=== PATIENT | male | born 1935 | race Caucasian/White ===

== ENCOUNTER 2017-06-26 09:15 | Emergency (ER) | payer MEDICARE, BC ==
[2017-06-26] MEDS ORDERED: Ondansetron 4 MG/2 ML SDV IVPUSH ONE (10:28)
[2017-06-26] MEDS ORDERED: Sodium Chloride 0.9% 1,000 ML IV SCH (10:30)
--- NOTE | 2017-06-26 13:06 | US ---
INDICATION: Quick look ultrasound suggested dilated gallbladder with sludge by Dr. Monte. RIGHT UPPER QUADRANT/GALLBLADDER ULTRASOUND: Multiple ultrasonic images were obtained 06/26/2017 and revealed evidence of a pericardial effusion. The IVC was phasic. The liver appeared normal, as visualized. The common bile duct was normal in caliber at 4.6 mm. The aorta was not evaluated. The gallbladder measured 6.2 x 2.4 x 3.7 cm, with no calculi, sludge, wall thickening, pericholecystic fluid, or positive ultrasonic Lamb sign. The right kidney measured 11.1 x 4.9 x 4.9 cm with suggestion of some thinning of the renal cortex. A 2.5 x 2.4-cm cyst is noted splaying the right renal parenchyma near the midpole area. It is mostly exophytic. The right kidney was otherwise unremarkable. The pancreas appeared normal. IMPRESSION: 1. No evidence of gallbladder sludge or positive ultrasonic Lamb sign. No calculi are seen in the gallbladder. 2. Small right renal cyst. 3. Pericardial effusion. Report was called to Dr. Monte at 1200 hours, 06/26/2017. [facility]
--- NOTE | 2017-06-26 13:24 | CR ---
INDICATION: Cardiomegaly, hypocontractile heart. CHEST: PA and lateral views of the chest were obtained 06/26/2017 and compared with 05/05/2016 and 07/08/2011. There are now noted healing rib fractures on the right, posterolaterally at the 7th and 8th right ribs, with a slightly nodular appearance of the periosteal new bone formation. A definite active infiltrate or effusion was not identified. The heart is within normal limits in size and shape. There is some calcification in the arch of the aorta, however. Bony structures appear to be grossly intact, with a minimal dextroconcave scoliosis suggested at the lower middle thoracic spine. Slightly heavy markings are again noted at the right costophrenic angle, likely fibrotic in nature with no definite active infiltrate or effusion identified. Prominent AP diameter and somewhat flattened diaphragm leaves remain compatible with COPD. IMPRESSION: 1. No acute process. 2. Probable COPD. 3. ASD aorta. 4. Mild pulmonary fibrosis. 5. Healing rib fractures on the right x2. MTDD
[2017-06-26 14:27] VITALS: BP 138/82
--- NOTE | 2017-06-30 15:23 | ER ---
DATE SEEN: 06/26/2017 TIME SEEN: The patient was seen at 0936 hours. CHIEF COMPLAINT: Nausea and loose stools x2, vomiting/retching with chills since last night. HISTORY OF PRESENT ILLNESS: This 81-year-old retired gentleman comes in with his son, noted to have diarrhea, feelings of hot and cold (autonomic symptoms) status post previous cardiac stent, fracture clavicle, right shoulder injury with right rib fractures, scapular fracture 05/17/2016. PAST MEDICAL HISTORY: Acute pericarditis in 1995, chest pain in 1994, tubular adenoma of colon with resection, polypectomy, right cataract surgery in 1986 review, ureteral calculus 1974, and tonsillectomy in 1939, angiography in 2010 with stents placed, 90% stenosis, LAD and its branch, type 2 diabetes. Previous documented bradycardia. Early dementia. He was transferred from [facility] on 05/17/2016 for his bradycardia. No pacemaker was in place. PAST SURGICAL HISTORY: Tonsillectomy, coronary artery stent, shoulder fractures, comminuted fracture of scapula with conservative therapy, displaced rib fractures. ALLERGIES: None. CURRENT MEDICATIONS: 1. Simvastatin 20 mg daily. 2. Losartan 50 mg daily. 3. Glimepiride 4 mg daily. 4. Carvedilol 6.25 mg b.i.d. 5. Aspirin 81 mg daily. REVIEW OF SYSTEMS: The patient has decreased hearing. HEENT: Has glasses. No history of cataracts or glaucoma. No difficulty swallowing. He has his own teeth. No neck problems. CARDIORESPIRATORY: Denies chest pain, shortness of breath, or irregular heartbeat. He felt slightly dizzy today after he vomited. GI: History of vomiting as noted above. No previous history of ulcers, GERD, diarrhea, constipation, blood in the stool, black tarry stool. : He does have nocturia and frequency. Denies dysuria. Denies kidney stones. MUSCULOSKELETAL: Decreased strength. NEURO: Denies head injury, headaches, compromise vision, but his son notes he has increased mental fall away. PHYSICAL EXAMINATION: VITAL SIGNS: Blood pressure 160/70, heart rate 43, sometimes goes down to 35, respirations 16, oxygen saturation 99%, temperature is 35.8. GENERAL: Alert man, who is markedly hard of hearing. He is mildly overweight. He is well tanned. Pleasant personality, he has good eye contact. Hearing is decreased. TMs, normal appearance except for mild scarring. Pharynx without abnormality. Gag is in place. Uvula midline. Tongue midline. NECK: No bruits. There is some murmur that is transmitted from the heart. LUNGS: Clear to auscultation without rales, rhonchi, or wheezes. HEART: S1, S2. There is no irregular rate or rhythm. DIAGNOSTIC DATA: EKG, sinus bradycardia atrial premature complex. Abnormal inferior Q-waves, minimal significance. No evidence of myocardial infarction. He has bradycardia that goes down to as low as 35 beats per minute. He has sinus arrhythmia. Question AV conduction defect. LABORATORY FINDINGS: White count 6900, PMNs 85, lymphocytes 11, monos 3, platelets 209,000, hemoglobin 13.7. D-dimer is 538 (not abnormal for his age). Ten times his age would be suggested close to normal and he is 81 years, so over 800 would still be considered normal. Per the D-dimer study: Patients could even double or triple that should be normal as an outlier. GFR is 53, not abnormal for his age. Unchanged since 2016. Sodium 137, potassium 4.4, chloride 106, bicarb 26, BUN 21, creatinine 1.3. Calcium 9.0. Bilirubin normal at 1.0. AST and ALT normal at 20 and 19 respectively. Troponin less than 0.01. Quick look ultrasound suggests he might have sludge in the gallbladder. The heart has suggested cardiomegaly with 25-40% hypercontractility. The vena cava is dilated. There is minimal contractility of the aorta. Suggestion of pericardial fluid was confirmed with a designated ultrasound of the gallbladder. The gallbladder was negative. The gallbladder is dilated. ASSESSMENT AND PLAN: 1. Given the bradycardia, it went down to 35, the pericardial effusion and the patient's nausea and vomiting. The patient was treated for dehydration. Status discussed with Cardiology team. The patient to go to [place] for further evaluation and evaluate for potential need for pacemaker. 2. Other history of cardiac stent. Probable 25-50% EF. 3. Transient enterocolitis and vomiting and diarrhea secondary to either staphylococcal food poisoning or enterococcal food poisoning. 4. Hypertension. 5. Hot and cold sweats probably secondary to autonomic symptoms related to his gastroenteritis. /[id number] 50 LS/MODL
== END 2017-06-26 14:26 ==
LOC: FB.ED 09:15
DX: K52.9 Noninfective gastroenteritis and colitis, unspecified (principal); E86.0 Dehydration; R00.1 Bradycardia, unspecified; I10 Essential (primary) hypertension; Z98.49 Cataract extraction status, unspecified eye; Z95.5 Presence of coronary angioplasty implant and graft; Z98.890 Other specified postprocedural states; Z79.82 Long term (current) use of aspirin; Z79.899 Other long term (current) drug therapy; E11.9 Type 2 diabetes mellitus without complications
CPT/HCPCS: 36415; 71020; 76705; 80053; 83605; 83690; 83880; 84443; 84484; 85025; 85379; 93005; 96361; 96374; 99285; J2405; J7040

== ENCOUNTER 2017-10-11 03:51 | Observation (INO) | payer MEDICARE, BC ==
[2017-10-11] MEDS ORDERED: Lactated Ringers 1,000 ML IV ONE (04:03)
--- NOTE | 2017-10-11 04:06 | EDM.PDOC ---
ED HPI GENERAL MEDICAL PROBLEM - General Stated Complaint: HEAD LAC Time Seen by Provider: 10/11/17 03:51 Source of Information: Reports: Patient, Police History Limitations: Reports: Altered Mental Status - History of Present Illness INITIAL COMMENTS - FREE TEXT/NARRATIVE: 82 y.o.w.m h/o Dementia, HTN, came to the ed by the police after he was found in his truck, not responding with blood at the back if his head. BS was 199 on arrival to the ED, his temp was 92 axillary. Pt was lethargic asking occ "what happened", has NIDDM and had episodes of nausea, did not vomit in the ED, however. BP 127/94 pulse 48 temp 33,4 F As per son, who was called by the police, stated, the pt was seen not long ago in the hospital for HTN and low HR. While the pt was examined in the ed, his mental status was improving. Onset Date: 10/11/17 Onset Time: 03:00 Duration: Minutes: Location: Reports: Head - Related Data Allergies Allergy/AdvReac Type Severity Reaction Status Date / Time No Known Allergies Allergy Verified 10/11/17 07:37 Home Meds: Home Meds Glimepiride 4 mg PO DAILY 05/03/16 [History] Losartan [Cozaar] 50 mg PO DAILY 05/03/16 [History] Aspirin 81 mg PO DAILY 05/05/16 [History] Simvastatin [Zocor] 20 mg PO BEDTIME 05/05/16 [History] Donepezil HCl 10 mg PO BEDTIME 10/11/17 [History] Past Medical History HEENT History: Reports: Cataract, Impaired Vision Cardiovascular History: Reports: Stents Respiratory History: Reports: None Musculoskeletal History: Reports: Fracture Other Musculoskeletal History: scapula and rib fractures 04/2016 Endocrine/Metabolic History: Reports: Diabetes, Type II - Infectious Disease History Infectious Disease History: Reports: Chicken Pox Other Infectious Disease History: HAS HAD SHOT FOR SHINGLES - Past Surgical History Cardiovascular Surgical History: Reports: Coronary Artery Stent Musculoskeletal Surgical History: Reports: None Social & Family History - Family History Family Medical History: Noncontributory - Tobacco Use Smoking Status *Q: Never Smoker Years of Tobacco use: 15 Packs/Tins Daily: 1 Used Tobacco, but Quit: Yes Month Tobacco Last Used: NOV Second Hand Smoke Exposure: No - Caffeine Use Caffeine Use: Reports: Coffee - Alcohol Use Days Per Week of Alcohol Use: 2 Number of Drinks Per Day: 1 Total Drinks Per Week: 2 - Recreational Drug Use Recreational Drug Use: No ED ROS GENERAL - Review of Systems Review Of Systems: Unable To Obtain ED EXAM, GENERAL - Physical Exam Exam: See Below Exam Limited By: Altered Mental Status General Appearance: WD/WN, Lethargic (postictal) Eye Exam: Bilateral Eye: Normal Inspection Ears: Normal External Exam Ear Exam: Bilateral Ear: Auricle Normal Nose: Normal Inspection, Normal Mucosa, No Blood Throat/Mouth: Other (bite on right lat tongue ) Head: Other (SQ hematoma r post travon 5X2 cm) Neck: Normal Inspection, Supple, Non-Tender, Full Range of Motion Respiratory/Chest: No Respiratory Distress, Lungs Clear (poor insp effort), Normal Breath Sounds Cardiovascular: Bradycardia Peripheral Pulses: 1+: Femoral (L), Femoral (R) GI/Abdominal: Normal Bowel Sounds, Soft, Non-Tender (Male) Exam: Deferred Rectal (Males) Exam: Deferred Back Exam: Normal Inspection, Full Range of Motion Extremities: Normal Inspection, Normal Range of Motion, Non-Tender, No Pedal Edema Neurological: Confused, Disoriented, Slow to Respond (initially) Psychiatric: Depressed Mood Skin Exam: Cool Lymphatic: No Adenopathy EKG INTERPRETATION EKG Date: 10/11/17 Time: 04:25 Rhythm: NSR Rate (Beats/Min): 43 [place]: Normal P-Wave: Present QRS: Normal ST-T: Normal QT: Normal Comparison: NA - No Prior EKG Course - Vital Signs Text/Narrative:: 82 y.o.w.m h/o Dementia, HTN, came to the ed by the police after he was found in his truck, not responding, blood at the back if his head. BS was 199 on arrival to the ED, his temp was 92 axillary. Pt was lethargic asking occ "what happened", has NIDDM and had episodes of nausea, however, did not vomit in the ED, however. BP 127/94 pulse 48 temp 33,4 F As per son, who was called by the police, stated, the pt was seen not long ago in the hospital for HTN and low HR. While the pt was examined in the ed, his mental status was improving. PE: tongue bite, lethargy/post ictal with abrasion and SQ hematoma right post travon. Temp 92.4 Labs: CBC nl, BUN 20 Cr. 1.4 Na 136 K 4.7 GFR 49 ETOH < 0.01 UA results are pending Imaging: CT head and CT neck: NAD Impression: Poss GM Sz, Hypothermia h/o dementia (Alzheimers?), sinus bradycardia, SQ hematoma at post travon with abrasion. Tx: Warm LR, Sz precautions, warm blankets, bear hugger Reexam: Improved temp was 94.4 on admission to ICU, pt is now OX3 Pt was able to hold up his extremities for 10 seconds, no drift Plan: Admit to ICU Last Recorded V/S: Last Vital Signs Temp 36.3 C 10/11/17 17:00 Pulse 59 L 10/11/17 09:45 Resp 20 10/11/17 17:00 BP 148/83 H 10/11/17 17:00 Pulse Ox 96 10/11/17 17:00 - Orders/Labs/Meds Labs: Laboratory Tests 10/11/17 10/11/17 10/11/17 Range/Units 03:56 04:15 04:15 WBC 7.6 (4.5-12.0) X10-3/uL RBC 4.77 (4.30-5.75) x10(6)uL Hgb 14.3 (11.5-15.5) g/dL Hct 42.8 (30.0-51.3) % MCV 89.7 (80-96) fL MCH 30.0 (27.7-33.6) pg MCHC 33.4 (32.2-35.4) g/dL RDW 13.7 (11.5-15.5) % Plt Count 289 (125-369) X10(3)uL MPV 8.0 (7.4-10.4) fL Neut % (Auto) 76.0 (46-82) % Lymph % (Auto) 17.7 (13-37) % Wheeler % (Auto) 4.3 (4-12) % Eos % (Auto) 1 (1.0-5.0) % Baso % (Auto) 1 (0-2) % Neut # (Auto) 5.8 (1.6-8.3) # Lymph # (Auto) 1.3 (0.6-5.0) # Wheeler # (Auto) 0.3 (0.0-1.3) # Eos # (Auto) 0.1 (0.0-0.8) # Baso # (Auto) 0.1 (0.0-0.2) # PT 10.7 (8.7-11.1) INR 1.06 (0.89-1.13) Sodium (135-145) mmol/L Potassium (3.5-5.3) mmol/L Chloride (100-110) mmol/L Carbon Dioxide (23-29) mmol/L BUN (8-23) mg/dL Creatinine (0.6-1.3) mg/dL Est Cr Clr Drug Dosing Estimated GFR (MDRD) (>60) BUN/Creatinine Ratio (9-20) Glucose (80-116) mg/dL POC Glucose 199 H (80-116) mg/dL Hemoglobin A1c (4.0-6.0) % Calcium (8.6-10.2) mg/dL Total Bilirubin (0.1-1.3) mg/dL Direct Bilirubin (0.1-0.2) mg/dL AST (5-27) IU/L ALT (14-26) IU/L Alkaline Phosphatase (56-112) IU/L Troponin I (0.02-0.06) NG/ML NT-Pro-B Natriuret Pep (5-450) pg/mL Total Protein (6.0-8.0) g/dL Albumin (3.2-4.6) g/dL Amylase (28-100) U/L TSH, Ultra Sensitive (0.4-5.5) nlU/mL Salicylates (5.0-25.0) mg/dL Acetaminophen (10-30) ug/mL Ethyl Alcohol (<0.01) % 10/11/17 10/11/17 10/11/17 Range/Units 04:15 04:15 04:15 WBC (4.5-12.0) X10-3/uL RBC (4.30-5.75) x10(6)uL Hgb (11.5-15.5) g/dL Hct (30.0-51.3) % MCV (80-96) fL MCH (27.7-33.6) pg MCHC (32.2-35.4) g/dL RDW (11.5-15.5) % Plt Count (125-369) X10(3)uL MPV (7.4-10.4) fL Neut % (Auto) (46-82) % Lymph % (Auto) (13-37) % Wheeler % (Auto) (4-12) % Eos % (Auto) (1.0-5.0) % Baso % (Auto) (0-2) % Neut # (Auto) (1.6-8.3) # Lymph # (Auto) (0.6-5.0) # Wheeler # (Auto) (0.0-1.3) # Eos # (Auto) (0.0-0.8) # Baso # (Auto) (0.0-0.2) # PT (8.7-11.1) INR (0.89-1.13) Sodium 136 (135-145) mmol/L Potassium 4.7 (3.5-5.3) mmol/L Chloride 104 (100-110) mmol/L Carbon Dioxide 24 (23-29) mmol/L BUN 20 (8-23) mg/dL Creatinine 1.4 H (0.6-1.3) mg/dL Est Cr Clr Drug Dosing TNP Estimated GFR (MDRD) 49 L (>60) BUN/Creatinine Ratio 14.3 (9-20) Glucose 232 H (80-116) mg/dL POC Glucose (80-116) mg/dL Hemoglobin A1c 6.1 H (4.0-6.0) % Calcium 8.8 (8.6-10.2) mg/dL Total Bilirubin 1.2 (0.1-1.3) mg/dL Direct Bilirubin 0.2 (0.1-0.2) mg/dL AST 23 D (5-27) IU/L ALT 21 D (14-26) IU/L Alkaline Phosphatase 76 (56-112) IU/L Troponin I (0.02-0.06) NG/ML NT-Pro-B Natriuret Pep 296 (5-450) pg/mL Total Protein 7.5 (6.0-8.0) g/dL Albumin 4.0 (3.2-4.6) g/dL Amylase 32 (28-100) U/L TSH, Ultra Sensitive (0.4-5.5) nlU/mL Salicylates (5.0-25.0) mg/dL Acetaminophen (10-30) ug/mL Ethyl Alcohol (<0.01) % 10/11/17 10/11/17 10/11/17 Range/Units 04:15 04:15 04:15 WBC (4.5-12.0) X10-3/uL RBC (4.30-5.75) x10(6)uL Hgb (11.5-15.5) g/dL Hct (30.0-51.3) % MCV (80-96) fL MCH (27.7-33.6) pg MCHC (32.2-35.4) g/dL RDW (11.5-15.5) % Plt Count (125-369) X10(3)uL MPV (7.4-10.4) fL Neut % (Auto) (46-82) % Lymph % (Auto) (13-37) % Wheeler % (Auto) (4-12) % Eos % (Auto) (1.0-5.0) % Baso % (Auto) (0-2) % Neut # (Auto) (1.6-8.3) # Lymph # (Auto) (0.6-5.0) # Wheeler # (Auto) (0.0-1.3) # Eos # (Auto) (0.0-0.8) # Baso # (Auto) (0.0-0.2) # PT (8.7-11.1) INR (0.89-1.13) Sodium (135-145) mmol/L Potassium (3.5-5.3) mmol/L Chloride (100-110) mmol/L Carbon Dioxide (23-29) mmol/L BUN (8-23) mg/dL Creatinine (0.6-1.3) mg/dL Est Cr Clr Drug Dosing Estimated GFR (MDRD) (>60) BUN/Creatinine Ratio (9-20) Glucose (80-116) mg/dL POC Glucose (80-116) mg/dL Hemoglobin A1c (4.0-6.0) % Calcium (8.6-10.2) mg/dL Total Bilirubin (0.1-1.3) mg/dL Direct Bilirubin (0.1-0.2) mg/dL AST (5-27) IU/L ALT (14-26) IU/L Alkaline Phosphatase (56-112) IU/L Troponin I 0.01 L (0.02-0.06) NG/ML NT-Pro-B Natriuret Pep (5-450) pg/mL Total Protein (6.0-8.0) g/dL Albumin (3.2-4.6) g/dL Amylase (28-100) U/L TSH, Ultra Sensitive 1.44 (0.4-5.5) nlU/mL Salicylates < 4.0 L (5.0-25.0) mg/dL Acetaminophen < 10 L (10-30) ug/mL Ethyl Alcohol (<0.01) % 10/11/17 Range/Units 04:15 WBC (4.5-12.0) X10-3/uL RBC (4.30-5.75) x10(6)uL Hgb (11.5-15.5) g/dL Hct (30.0-51.3) % MCV (80-96) fL MCH (27.7-33.6) pg MCHC (32.2-35.4) g/dL RDW (11.5-15.5) % Plt Count (125-369) X10(3)uL MPV (7.4-10.4) fL Neut % (Auto) (46-82) % Lymph % (Auto) (13-37) % Wheeler % (Auto) (4-12) % Eos % (Auto) (1.0-5.0) % Baso % (Auto) (0-2) % Neut # (Auto) (1.6-8.3) # Lymph # (Auto) (0.6-5.0) # Wheeler # (Auto) (0.0-1.3) # Eos # (Auto) (0.0-0.8) # Baso # (Auto) (0.0-0.2) # PT (8.7-11.1) INR (0.89-1.13) Sodium (135-145) mmol/L Potassium (3.5-5.3) mmol/L Chloride (100-110) mmol/L Carbon Dioxide (23-29) mmol/L BUN (8-23) mg/dL Creatinine (0.6-1.3) mg/dL Est Cr Clr Drug Dosing Estimated GFR (MDRD) (>60) BUN/Creatinine Ratio (9-20) Glucose (80-116) mg/dL POC Glucose (80-116) mg/dL Hemoglobin A1c (4.0-6.0) % Calcium (8.6-10.2) mg/dL Total Bilirubin (0.1-1.3) mg/dL Direct Bilirubin (0.1-0.2) mg/dL AST (5-27) IU/L ALT (14-26) IU/L Alkaline Phosphatase (56-112) IU/L Troponin I (0.02-0.06) NG/ML NT-Pro-B Natriuret Pep (5-450) pg/mL Total Protein (6.0-8.0) g/dL Albumin (3.2-4.6) g/dL Amylase (28-100) U/L TSH, Ultra Sensitive (0.4-5.5) nlU/mL Salicylates (5.0-25.0) mg/dL Acetaminophen (10-30) ug/mL Ethyl Alcohol < 0.01 (<0.01) % Meds: Medications Discontinued Medications Generic Name Dose Route Start Last Admin Trade Name Freq PRN Reason Stop Dose Admin Diphtheria/Tetanus/Acell Pertussis 0.5 ml 10/11/17 05:29 10/11/17 06:39 Adacel IM 10/11/17 05:30 0.5 ml .ONCE ONE Administration Lactated Ringer's 1,000 mls @ 999 mls/hr 10/11/17 04:03 10/11/17 04:07 Ringers, Lactated IV 10/11/17 05:03 999 mls/hr BOLUS ONE Administration Lactated Ringer's 1,000 mls @ 125 mls/hr 10/11/17 05:30 10/11/17 13:32 Ringers, Lactated IV 125 mls/hr ASDIRECTED LOUISA Administration Lorazepam 1 mg 10/11/17 07:12 Ativan IVPUSH Q4H PRN Seizures Ondansetron HCl 8 mg 10/11/17 04:07 10/11/17 04:11 Zofran IVPUSH 10/11/17 04:08 8 mg ONETIME ONE Administration Ondansetron HCl 4 mg 10/11/17 05:39 Zofran IV Q4H PRN Nausea/Vomiting Pantoprazole Sodium 40 mg 10/11/17 04:09 10/11/17 04:29 Protonix Iv IVPUSH 10/11/17 04:10 40 mg ONETIME ONE Administration Departure - Departure Time of Disposition: 18:00 Disposition: Refer to Observation Condition: Fair Clinical Impression: Seizure, Bradycardia Hypothermia Qualifiers: Encounter type: initial encounter Qualified Code(s): T68.XXXA - Hypothermia, initial encounter - Discharge Information
[2017-10-11] MEDS ORDERED: Ondansetron 4 MG/2 ML SDV IVPUSH ONE (04:07)
[2017-10-11] MEDS ORDERED: Pantoprazole 40 MG Vial IVPUSH ONE (04:09)
[2017-10-11 05:06] LABS: ACETAMINOPHEN < 10 ug/mL (10-30)
[2017-10-11] MEDS ORDERED: Diphtheria,Pertussis(Acell),Tetanus Vaccine 0.5 ML SDV IM ONE (05:29)
[2017-10-11] MEDS: Lactated Ringers 1,000 ML IV SCH ×2 (05:29→13:32)
[2017-10-11] MEDS ORDERED: Ondansetron 4 MG/2 ML SDV IV PRN (05:39)
[2017-10-11] MEDS ORDERED: LORazepam 2 MG/ML MDV IVPUSH PRN (07:12)
--- NOTE | 2017-10-11 07:19 | PCM.HP ---
H&P History of Present Illness - General Date of Service: 10/11/17 Admit Problem/Dx: Admission Diagnosis/Problem Admission Diagnosis/Problem Seizure Source of Information: Patient, EMS Notes Reviewed, Other (Nurse that took report) History Limitations: Reports: Other (Patient is alert oriented 3 now but does not remember what happened for the short-term incident.) - History of Present Illness Initial Comments - Free Text/Narative: This is an 82-year-old male patient but states that he went to a state feed at 3 PM today. He said is very good. He had one alcoholic beverage. He is and he went home to his large house. He states he got nauseated and he says he does not like to vomit so he got his truck and headed towards the ER. He states he got better so he had at home. He got home and then he states he got nauseated again so he got his truck and went to the ER. He states he was not seen but he wanted to be around people so he was in the waiting room. He says he got better and that had at home and after that he remembers the please come in to talk to him. As reported per nurse that he was found by his car passed out with little gash in the back of his head. He was confused and didn't know why he was appears brought to the ED and admitted for seizure precautions. Head CT was read as negative. No reports that he was seizing or history of season. He does have a history of Alzheimer's that he states his mind is getting worse. He was found to be a little bit hypothermic in his pulses in the 46. He has a history of bradycardia and was supposed to get a pacemaker in the past but did not do it. - Related Data Allergies/Adverse Reactions: Allergies Allergy/AdvReac Type Severity Reaction Status Date / Time No Known Allergies Allergy Verified 06/26/17 09:27 Home Medications: Home Meds Glimepiride 4 mg PO DAILY 05/03/16 [History] Losartan [Cozaar] 50 mg PO DAILY 05/03/16 [History] Aspirin 81 mg PO DAILY 05/05/16 [History] Simvastatin [Zocor] 20 mg PO BEDTIME 05/05/16 [History] Donepezil HCl 10 mg PO BEDTIME 10/11/17 [History] Past Medical History HEENT History: Reports: Cataract, Impaired Vision Cardiovascular History: Reports: CA, Stents Respiratory History: Reports: None Genitourinary History: Reports: Renal Calculus Other Genitourinary History: long ago Musculoskeletal History: Reports: Fracture Other Musculoskeletal History: scapula and rib fractures 04/2016 Neurological History: Reports: Other (See Below) Other Neuro History: takes aricept, ? beginning dementia Psychiatric History: Reports: Dementia, Other (See Below) Other Psychiatric History: takes aricept Endocrine/Metabolic History: Reports: Diabetes, Type II - Infectious Disease History Infectious Disease History: Reports: Chicken Pox Other Infectious Disease History: HAS HAD SHOT FOR SHINGLES - Past Surgical History Cardiovascular Surgical History: Reports: Coronary Artery Stent, Other (See Below) Other Cardiovascular Surgeries/Procedures: hx slow hr, Male Surgical History: Reports: Circumcision Neurological Surgical History: Reports: None Musculoskeletal Surgical History: Reports: None Social & Family History - Family History Family Medical History: Noncontributory - Tobacco Use Smoking Status *Q: Former Smoker Years of Tobacco use: 20 Packs/Tins Daily: 1 Used Tobacco, but Quit: Yes Month Tobacco Last Used: unknown Second Hand Smoke Exposure: No - Caffeine Use Caffeine Use: Reports: Coffee Other Caffeine Use: 1-2 cups/day - Alcohol Use Days Per Week of Alcohol Use: 1 Number of Drinks Per Day: 1 Total Drinks Per Week: 1 Date of Last Drink: 10/10/17 Time of Last Drink: 13:00 - Recreational Drug Use Recreational Drug Use: No H&P Review of Systems - Review of Systems: Review Of Systems: See Below General: Reports: No Symptoms HEENT: Reports: Hearing Changes (Chronic) Pulmonary: Reports: No Symptoms Cardiovascular: Reports: No Symptoms Gastrointestinal: Reports: No Symptoms Genitourinary: Reports: No Symptoms Musculoskeletal: Reports: Other (And abrasion the back of his head) Skin: Reports: No Symptoms Psychiatric: Reports: Other (More problems with short-term memory) Neurological: Reports: Confusion Hematologic/Lymphatic: Reports: No Symptoms Immunologic: Reports: No Symptoms Exam - Exam Exam: See Below - Vital Signs Vital Signs: Last Vital Signs Temp 95.5 F 10/11/17 05:39 Pulse 51 L 10/11/17 05:50 Resp 16 10/11/17 05:50 BP 147/66 H 10/11/17 05:50 Pulse Ox 97 10/11/17 05:50 Weight: 235 lb - Exam General: Alert, Oriented, Cooperative. No: Mild Distress, Sedated HEENT: PERRLA, Mucosa Moist & [place], Posterior Pharynx Clear, TMs Clear Neck: Supple, Trachea Midline. No: Lymphadenopathy Lungs: Clear to Auscultation, Normal Respiratory Effort. No: Crackles, Rales, Rhonchi Cardiovascular: Regular Rate, Regular Rhythm, Normal S1, Normal S2. No: Systolic Murmur, Diastolic Murmur GI/Abdominal Exam: Normal Bowel Sounds, Soft, Non-Tender, No Organomegaly, No Distention, No Abnormal Bruit Back Exam: Normal Inspection Extremities: Normal Range of Motion, Non-Tender, No Pedal Edema Skin: Warm, Other (Abrasion back of the head) Neurological: Cranial Nerves Intact, Strength Equal Bilateral, Normal Speech, Normal Tone, Other (Gait not tested) Neuro Extensive - Mental Status: Alert, Oriented x3, Normal Mood/Affect, Normal Cognition, Memory Intact Psychiatric: Alert, Normal Affect, Normal Mood - Patient Data Result Diagrams: 10/11/17 04:15 10/11/17 04:15 *Q Meaningful Use (ADM) - VTE *Q VTE Criteria *Q: - Stroke *Q Stroke Criteria *Q: - AMI *Q AMI Criteria *Q: - Problem List (1) Altered mental status SNOMED Code(s): 757267378 ICD Code: R41.82 - ALTERED MENTAL STATUS, UNSPECIFIED Status: Acute Current Visit: Yes (2) Bradycardia SNOMED Code(s): 53835761 ICD Code: R00.1 - BRADYCARDIA, UNSPECIFIED Status: Acute Current Visit: Yes (3) Hypothermia SNOMED Code(s): 538939357 ICD Code: T68.XXXA - HYPOTHERMIA, INITIAL ENCOUNTER Status: Acute Current Visit: Yes Qualifiers: Encounter type: initial encounter Qualified Code(s): T68.XXXA - Hypothermia , initial encounter Problem List Initiated/Reviewed/Updated: Yes Orders Last 24hrs: Active Orders 24 hr Category Date Time Status LORazepam [Ativan] Med 10/11/17 07:12 Ordered 1 mg IVPUSH Q4H PRN Medication Orders Lactated Ringer's (Ringers, Lactated) 1,000 mls @ 125 mls/hr IV ASDIRECTED [facility] Last Admin: 10/11/17 05:29 Dose: 125 mls/hr Lorazepam (Ativan) 1 mg IVPUSH Q4H PRN PRN Reason: Seizures Ondansetron HCl (Zofran) 4 mg IV Q4H PRN PRN Reason: Nausea/Vomiting Assessment/Plan Comment:: 1. He was admitted last night for observation with seizure precautions. 2. Nothing by mouth with IV fluids. 3. Hold his medications for now. 4. Up with assist. 5. Telemetry to watch his heart. 6. Labs reviewed and nothing needs to be repeated at this time. 7. When he does better consider feeding him. 8. Order Ativan 1 mg every 4 hours when necessary for seizure IV. I doubt we'll have to use this. 9. Watch heart rate on telemetry and check blood sugars 4 times a day
[2017-10-11 17:08] VITALS: BP 148/83
--- NOTE | 2017-10-11 17:14 | PCM.SN ---
- Free Text/Narrative Note: Patient has been stable all day. Blood pressure, pulse and blood sugars. No symptoms of seizures or altered mental status. We'll discharged home without having him drive until he sees his primary provider.
--- NOTE | 2017-10-11 17:18 | PCM.DCSUM1 ---
Discharge Summary - Hospital Course Free Text/Narrative:: Hospital course-patient was placed in the hospital on diabetic diet, Accu-Cheks and ICU with seizure precautions. Patient was here all day and had no symptoms of syncope or altered mental status. Blood pressure, pulse, blood sugars all remained normal. Head CT was read as negative. I related to him and the family that I'm not sure why he had this episode. He was nauseated may be part of the problem and that could be due to illness. No signs of stroke, bradycardia, hypoglycemia, electrolyte disturbance or alcohol induced altered mental status. I will send him home but not have him try his motor vehicle totally rechecks with Dr. Arredondo his primary provider. Brief History: This is an 82-year-old male patient but states that he went to a state feed at 3 PM today. He said is very good. He had one alcoholic beverage. He is and he went home to his large house. He states he got nauseated and he says he does not like to vomit so he got his truck and headed towards the ER. He states he got better so he had at home. He got home and then he states he got nauseated again so he got his truck and went to the ER. He states he was not seen but he wanted to be around people so he was in the waiting room. He says he got better and that had at home and after that he remembers the please come in to talk to him. As reported per nurse that he was found by his car passed out with little gash in the back of his head. He was confused and didn't know why he was appears brought to the ED and admitted for seizure precautions. Head CT was read as negative. No reports that he was seizing or history of season. He does have a history of Alzheimer's that he states his mind is getting worse. He was found to be a little bit hypothermic in his pulses in the 46. He has a history of bradycardia and was supposed to get a pacemaker in the past but did not do it. - Discharge Data Discharge Date: 10/11/17 Discharge Disposition: Home, Self-Care 01 Condition: Good - Discharge Diagnosis/Problem(s) (1) Altered mental status SNOMED Code(s): 422224860 ICD Code: R41.82 - ALTERED MENTAL STATUS, UNSPECIFIED Status: Acute Current Visit: Yes (2) Bradycardia SNOMED Code(s): 30188364 ICD Code: R00.1 - BRADYCARDIA, UNSPECIFIED Status: Acute Current Visit: Yes (3) Hypothermia SNOMED Code(s): 949661157 ICD Code: T68.XXXA - HYPOTHERMIA, INITIAL ENCOUNTER Status: Acute Current Visit: Yes Qualifiers: Encounter type: initial encounter Qualified Code(s): T68.XXXA - Hypothermia , initial encounter - Patient Instructions Diet: Diabetic Diet Activity: As Tolerated Driving: Do Not Drive Showering/Bathing: May Shower Other/Special Instructions: 1. Recheck with Dr. Paul Arredondo within the next 3- 5 days. 2. Patient is not to drive his motor vehicle until he sees his primary provider. - Discharge Plan Home Medications: Home Meds Glimepiride 4 mg PO DAILY 05/03/16 [History] Losartan [Cozaar] 50 mg PO DAILY 05/03/16 [History] Aspirin 81 mg PO DAILY 05/05/16 [History] Simvastatin [Zocor] 20 mg PO BEDTIME 05/05/16 [History] Donepezil HCl 10 mg PO BEDTIME 10/11/17 [History] Patient Handouts: Venous Thromboembolism Forms: ED Department Discharge Referrals: PCP,Unknown [Primary Care Provider] - - Discharge Summary/Plan Comment DC Time >30 min.: No - Patient Data Vitals - Most Recent: Last Vital Signs Temp 97.3 F 10/11/17 17:00 Pulse 59 L 10/11/17 09:45 Resp 20 10/11/17 17:00 BP 148/83 H 10/11/17 17:00 Pulse Ox 96 10/11/17 17:00 Weight - Most Recent: 235 lb I&O - Last 24 hours: Intake & Output 10/11/17 10/11/17 10/11/17 06:59 14:59 22:59 Intake Total 0 1150 Output Total 0 150 Balance 0 1000 Lab Results - Last 24 hrs: Laboratory Results - last 24 hr 10/11/17 10/11/17 10/11/17 Range/Units 08:05 08:50 11:39 POC Glucose 175 H 117 H (80-116) mg/dL Urine Opiates Screen Negative (NEGATIVE) Ur Oxycodone Screen Negative (NEGATIVE) Ur Propoxyphene Screen Negative (NEGATIVE) Ur Barbituates Screen Negative (NEGATIVE) Ur Tricyclics Screen Negative (NEGATIVE) Ur Phencyclidine Scrn Negative (NEGATIVE) Ur Amphetamine Screen Negative (NEGATIVE) Urine MDMA Screen Negative (NEGATIVE) U Benzodiazepines Scrn Negative (NEGATIVE) U Cocaine Metab Screen Negative (NEGATIVE) U Marijuana (THC) Screen Negative (NEGATIVE) 10/11/17 Range/Units 16:28 POC Glucose 126 H (80-116) mg/dL Urine Opiates Screen (NEGATIVE) Ur Oxycodone Screen (NEGATIVE) Ur Propoxyphene Screen (NEGATIVE) Ur Barbituates Screen (NEGATIVE) Ur Tricyclics Screen (NEGATIVE) Ur Phencyclidine Scrn (NEGATIVE) Ur Amphetamine Screen (NEGATIVE) Urine MDMA Screen (NEGATIVE) U Benzodiazepines Scrn (NEGATIVE) U Cocaine Metab Screen (NEGATIVE) U Marijuana (THC) Screen (NEGATIVE) Med Orders - Current: Current Medications Lactated Ringer's (Ringers, Lactated) 1,000 mls @ 125 mls/hr IV ASDIRECTED [facility] Last Admin: 10/11/17 13:32 Dose: 125 mls/hr Lorazepam (Ativan) 1 mg IVPUSH Q4H PRN PRN Reason: Seizures Ondansetron HCl (Zofran) 4 mg IV Q4H PRN PRN Reason: Nausea/Vomiting Discontinued Medications Diphtheria/Tetanus/Acell Pertussis (Adacel) 0.5 ml IM .ONCE ONE Stop: 10/11/17 05:30 Last Admin: 10/11/17 06:39 Dose: 0.5 ml Lactated Ringer's (Ringers, Lactated) 1,000 mls @ 999 mls/hr IV BOLUS ONE Stop: 10/11/17 05:03 Last Admin: 10/11/17 04:07 Dose: 999 mls/hr Ondansetron HCl (Zofran) 8 mg IVPUSH ONETIME ONE Stop: 10/11/17 04:08 Last Admin: 10/11/17 04:11 Dose: 8 mg Pantoprazole Sodium (Protonix Iv) 40 mg IVPUSH ONETIME ONE Stop: 10/11/17 04:10 Last Admin: 10/11/17 04:29 Dose: 40 mg *Q Meaningful Use (DIS) - VTE *Q VTE Criteria *Q: - Stroke *Q Stroke Criteria *Q: - AMI *Q AMI Criteria *Q:
== END 2017-10-11 18:00 | disposition home or self-care (01) ==
LOC: FB.ED 03:51 → FB.ICU 05:39
PROVIDERS: ADMIT Family Medicine; ATTEND Family Medicine
DX: R41.82 Altered mental status, unspecified (principal); R56.9 Unspecified convulsions; R00.1 Bradycardia, unspecified; T68.XXXA Hypothermia, initial encounter; S00.01XA Abrasion of scalp, initial encounter; G30.9 Alzheimer's disease, unspecified; F02.80 Dementia in other diseases classified elsewhere, unspecified severity, without behavioral disturbance, psychotic disturbance, mood disturbance, and anxiety; I25.2 Old myocardial infarction; E11.9 Type 2 diabetes mellitus without complications; I10 Essential (primary) hypertension; Z87.891 Personal history of nicotine dependence; Z79.82 Long term (current) use of aspirin; Z79.84 Long term (current) use of oral hypoglycemic drugs; Z79.899 Other long term (current) drug therapy; Z95.818 Presence of other cardiac implants and grafts; Z98.890 Other specified postprocedural states
CPT/HCPCS: 36415; 70450; 72125; 80048; 80076; 80305; 82150; 82962; 83036; 83880; 84443; 84484; 85025; 85610; 90471; 90715; 93005; 96361; 96374; 96375; 99285; C9113; G0480; J2405; J7120; 99236; 99284; G0378

== ENCOUNTER 2018-05-13 17:01 | Observation (INO) | payer MEDICARE, BC ==
--- NOTE | 2018-05-13 17:19 | EDM.PDOC ---
ED HPI GENERAL MEDICAL PROBLEM - General Stated Complaint: CHEST PAIN Time Seen by Provider: 05/13/18 17:01 Source of Information: Reports: Patient, Family (Grandson) History Limitations: Reports: No Limitations - History of Present Illness INITIAL COMMENTS - FREE TEXT/NARRATIVE: 82 y.o. w m S/P pacemaker placement came to the ed due to nonradiating SSCP in the last 3-5 days off and on, worse with activity. Pain on arrival was 5/10 Pt took 81 mg ASA [employer]. No N/V/D, No dizziness or any other acute medical issues. BP 127/72 Pulse 62 RR 18 Temp 36.8 Pulse ox 97% on RA Onset Date: 05/07/18 Onset Time: 08:00 Duration: Intermittent Location: Reports: Chest Quality: Reports: Burning, Dull, Pressure Severity: Moderate (5/10) Improves with: Reports: Medication Worsens with: Reports: Movement Context: Reports: Other Associated Symptoms: Reports: Chest Pain - Related Data Allergies Allergy/AdvReac Type Severity Reaction Status Date / Time No Known Allergies Allergy Verified 05/13/18 17:28 Home Meds: Home Meds Glimepiride 4 mg PO DAILY 05/03/16 [History] Losartan [Cozaar] 50 mg PO DAILY 05/03/16 [History] Aspirin 81 mg PO DAILY 05/05/16 [History] Donepezil HCl 10 mg PO BEDTIME 10/11/17 [History] Atenolol 25 mg DAILY 05/13/18 [History] Isosorbide Mononitrate [Imdur] 30 mg PO DAILY 05/13/18 [History] Rosuvastatin Calcium 40 mg BEDTIME 05/13/18 [History] Past Medical History HEENT History: Reports: Cataract, Impaired Vision Cardiovascular History: Reports: Stents Respiratory History: Reports: None Genitourinary History: Reports: Renal Calculus Other Genitourinary History: long ago Musculoskeletal History: Reports: Fracture Other Musculoskeletal History: scapula and rib fractures 04/2016 Neurological History: Reports: Other (See Below) Other Neuro History: takes aricept, ? beginning dementia Psychiatric History: Reports: Dementia, Other (See Below) Other Psychiatric History: takes aricept Endocrine/Metabolic History: Reports: Diabetes, Type II - Infectious Disease History Infectious Disease History: Reports: Chicken Pox Other Infectious Disease History: HAS HAD SHOT FOR SHINGLES - Past Surgical History Cardiovascular Surgical History: Reports: Coronary Artery Stent Musculoskeletal Surgical History: Reports: None Social & Family History - Family History Family Medical History: Noncontributory - Caffeine Use Caffeine Use: Reports: Coffee Other Caffeine Use: 1-2 cups/day ED ROS GENERAL - Review of Systems Review Of Systems: See Below Constitutional: Reports: No Symptoms HEENT: Reports: No Symptoms Respiratory: Reports: No Symptoms Cardiovascular: Reports: Chest Pain Endocrine: Reports: No Symptoms GI/Abdominal: Reports: No Symptoms : Reports: No Symptoms Musculoskeletal: Reports: No Symptoms Skin: Reports: No Symptoms Neurological: Reports: No Symptoms Psychiatric: Reports: No Symptoms Hematologic/Lymphatic: Reports: No Symptoms Immunologic: Reports: No Symptoms ED EXAM, GENERAL - Physical Exam Exam: See Below Exam Limited By: No Limitations General Appearance: Alert, WD/WN, Mild Distress Eye Exam: Bilateral Eye: Normal Inspection Ears: Normal External Exam Ear Exam: Bilateral Ear: Auricle Normal Nose: Normal Inspection Throat/Mouth: Normal Inspection Head: Atraumatic, Normocephalic Neck: Normal Inspection, Supple, Non-Tender, Full Range of Motion Respiratory/Chest: No Respiratory Distress, Lungs Clear, Normal Breath Sounds, Chest Non-Tender Cardiovascular: Normal Peripheral Pulses, Regular Rate, Rhythm, No Edema, No Gallop, No Rub Peripheral Pulses: 2+: Carotid (R) GI/Abdominal: Normal Bowel Sounds, Soft, Non-Tender, No Organomegaly, No Abnormal Bruit, No Mass (Male) Exam: Deferred Rectal (Males) Exam: Deferred Back Exam: Normal Inspection, Full Range of Motion Extremities: Normal Inspection, Normal Range of Motion, Non-Tender, No Pedal Edema, Normal Capillary Refill Neurological: Alert, Oriented, CN II-XII Intact, Normal Cognition, No Motor/ Sensory Deficits Psychiatric: Normal Affect Skin Exam: Warm, Dry, Intact, Normal Color, No Rash Lymphatic: No Adenopathy EKG INTERPRETATION EKG Date: 05/13/18 Time: 17:15 Rhythm: NSR Rate (Beats/Min): 62 [place]: Normal P-Wave: Present QRS: Normal ST-T: Normal QT: Normal Comparison: NA - No Prior EKG Course - Vital Signs Text/Narrative:: 82 y.o. w m S/P pacemaker placement came to the ed due to nonradiating SSCP in the last 3-5 days off and on, worse with activity. Pain on arrival was 5/10 Pt took 81 mg ASA [employer]. No N/V/D, No dizziness or any other acute medical issues. BP 127/72 Pulse 62 RR 18 Temp 36.8 Pulse ox 97% on RA PE: WNWD W M NAD after anther 3 81 mg ASA were given in the ed Labs: DDimer 1.09 Troponin 0.017 Imaging: Angio CT neg for PE/Pneumonia Impression: Chest pain Tx: ASA 18mgX3 Reexam: C/P subsided Plan: Admit to tele for observation Last Recorded V/S: Last Vital Signs Temp 36.5 C 05/14/18 08:00 Pulse 60 05/14/18 08:00 Resp 16 05/14/18 08:00 BP 135/80 05/14/18 08:00 Pulse Ox 98 05/14/18 08:00 - Orders/Labs/Meds Orders: Active Orders 24 hr Category Date Time Status Ang Chest [CT] Stat Exams 05/13/18 17:54 Taken Chest 1V Frontal [CR] Stat Exams 05/13/18 17:31 Taken Peripheral IV Insertion Adult [OM.PC] Routine Oth 05/13/18 18:55 Ordered EKG 12 Lead [EK] Routine Ther 05/13/18 17:20 Ordered Labs: Laboratory Tests 05/13/18 05/13/18 05/13/18 Range/Units 17:20 17:20 17:20 WBC 5.9 (4.5-12.0) X10-3/uL RBC 4.55 (4.30-5.75) x10(6)uL Hgb 13.8 (11.5-15.5) g/dL Hct 41.1 (30.0-51.3) % MCV 90.4 (80-96) fL MCH 30.4 (27.7-33.6) pg MCHC 33.6 (32.2-35.4) g/dL RDW 13.6 (11.5-15.5) % Plt Count 197 (125-369) X10(3)uL MPV 7.5 (7.4-10.4) fL Neut % (Auto) 59.5 (46-82) % Lymph % (Auto) 27.8 (13-37) % Bell % (Auto) 7.0 (4-12) % Eos % (Auto) 5 (1.0-5.0) % Baso % (Auto) 1 (0-2) % Neut # (Auto) 3.4 (1.6-8.3) # Lymph # (Auto) 1.7 (0.6-5.0) # Bell # (Auto) 0.4 (0.0-1.3) # Eos # (Auto) 0.3 (0.0-0.8) # Baso # (Auto) 0.1 (0.0-0.2) # PT (8.7-11.1) INR (0.89-1.13) D-Dimer, Quantitative 1.04 H (0.0-0.59) mg/LFEU Sodium 141 (135-145) mmol/L Potassium 4.0 (3.5-5.3) mmol/L Chloride 106 (100-110) mmol/L Carbon Dioxide 25 (21-32) mmol/L BUN 15 (7-18) mg/dL Creatinine 1.3 (0.70-1.30) mg/dL Est Cr Clr Drug Dosing TNP Estimated GFR (MDRD) 53 L (>60) BUN/Creatinine Ratio 11.5 (9-20) Glucose 124 H (80-116) mg/dL Calcium 8.6 (8.6-10.2) mg/dL Total Bilirubin 0.9 (0.1-1.3) mg/dL Direct Bilirubin 0.21 H (0.10-0.20) mg/dL AST 27 H (5-25) IU/L ALT 45 H (12-36) U/L Alkaline Phosphatase 87 (56-112) IU/L Troponin I (<0.017-0.056) ng/mL Total Protein 7.0 (6.0-8.0) g/dL Albumin 3.3 (3.2-4.6) g/dL Amylase 33 (25-115) U/L 05/13/18 05/13/18 Range/Units 17:20 17:25 WBC (4.5-12.0) X10-3/uL RBC (4.30-5.75) x10(6)uL Hgb (11.5-15.5) g/dL Hct (30.0-51.3) % MCV (80-96) fL MCH (27.7-33.6) pg MCHC (32.2-35.4) g/dL RDW (11.5-15.5) % Plt Count (125-369) X10(3)uL MPV (7.4-10.4) fL Neut % (Auto) (46-82) % Lymph % (Auto) (13-37) % Bell % (Auto) (4-12) % Eos % (Auto) (1.0-5.0) % Baso % (Auto) (0-2) % Neut # (Auto) (1.6-8.3) # Lymph # (Auto) (0.6-5.0) # Bell # (Auto) (0.0-1.3) # Eos # (Auto) (0.0-0.8) # Baso # (Auto) (0.0-0.2) # PT 10.7 (8.7-11.1) INR 1.10 (0.89-1.13) D-Dimer, Quantitative (0.0-0.59) mg/LFEU Sodium (135-145) mmol/L Potassium (3.5-5.3) mmol/L Chloride (100-110) mmol/L Carbon Dioxide (21-32) mmol/L BUN (7-18) mg/dL Creatinine (0.70-1.30) mg/dL Est Cr Clr Drug Dosing Estimated GFR (MDRD) (>60) BUN/Creatinine Ratio (9-20) Glucose (80-116) mg/dL Calcium (8.6-10.2) mg/dL Total Bilirubin (0.1-1.3) mg/dL Direct Bilirubin (0.10-0.20) mg/dL AST (5-25) IU/L ALT (12-36) U/L Alkaline Phosphatase (56-112) IU/L Troponin I < 0.017 L (<0.017-0.056) ng/mL Total Protein (6.0-8.0) g/dL Albumin (3.2-4.6) g/dL Amylase (25-115) U/L Meds: Medications Discontinued Medications Generic Name Dose Route Start Last Admin Trade Name Freq PRN Reason Stop Dose Admin Aspirin 324 mg 05/13/18 17:20 05/13/18 17:52 Aspirin PO 05/13/18 17:21 Not Given ONETIME ONE Aspirin 243 mg 05/13/18 17:48 05/13/18 17:15 Aspirin PO 05/13/18 17:49 243 mg ONETIME ONE Administration Iopamidol 100 ml 05/13/18 18:44 05/13/18 19:54 Isovue-370 (76%) IV 05/13/18 18:45 89 ml ONETIME ONE Administration Non-Formulary Medication 81 mg 05/15/18 09:00 Aspirin [Aspirin] PO DAILY LOUISA Non-Formulary Medication 25 mg 05/15/18 09:00 Atenolol [Atenolol] PO DAILY LOUISA Non-Formulary Medication 10 mg 05/14/18 21:00 Donepezil Hcl [Donepezil Hcl] PO BEDTIME LOUISA Non-Formulary Medication 4 mg 05/15/18 09:00 Glimepiride [Glimepiride] PO DAILY LOUISA Non-Formulary Medication 30 mg 05/15/18 09:00 Isosorbide Mononitrate [Imdur] PO DAILY LOUISA Non-Formulary Medication 50 mg 05/15/18 09:00 Losartan [Cozaar] PO DAILY LOUISA Non-Formulary Medication 40 mg 05/14/18 21:00 Rosuvastatin Calcium [Rosuvastatin Calcium] PO BEDTIME LOUISA Sodium Chloride 10 ml 05/13/18 18:55 05/13/18 18:30 Saline Flush FLUSH 10 ml ASDIRECTED PRN Administration Keep Vein Open Departure - Departure Time of Disposition: 19:00 Disposition: Admitted As Inpatient 66 Condition: Fair Clinical Impression: Chest pain Qualifiers: Chest pain type: unspecified Qualified Code(s): R07.9 - Chest pain, unspecified - My Orders Last 24 Hours: My Active Orders 05/13/18 17:20 EKG 12 Lead [EK] Routine 05/13/18 17:31 Chest 1V Frontal [CR] Stat 05/13/18 17:54 Ang Chest [CT] Stat 05/13/18 18:55 Peripheral IV Insertion Adult [OM.PC] Routine - Assessment/Plan Last 24 Hours: My Active Orders 05/13/18 17:20 EKG 12 Lead [EK] Routine 05/13/18 17:31 Chest 1V Frontal [CR] Stat 05/13/18 17:54 Ang Chest [CT] Stat 05/13/18 18:55 Peripheral IV Insertion Adult [OM.PC] Routine
[2018-05-13] MEDS ORDERED: Aspirin 81 MG Tab.Chew PO ONE ×2 (17:20→17:48)
[2018-05-13] MEDS ORDERED: Iopamidol 755 Mg/ML 100 ML Bottle IV ONE (18:44)
[2018-05-13] MEDS ORDERED: Sodium Chloride 0.9% 10 ML Syringe FLUSH PRN (18:55)
[2018-05-14 09:59] VITALS: BP 135/80
--- NOTE | 2018-05-14 12:12 | CR ---
INDICATION: Chest pain. CHEST: A single AP upright view of the chest, 05/13/2018, was compared with 09/2017 and 05/05/2016, revealing interval placement of bipolar pacemaker leads with the ventricular lead tip in the area of the apex of the right ventricle. The heart is normal in size and shape. Mediastinum was essentially unremarkable. Overlying EKG leads are noted. A definite active infiltrate or effusion was not identified. Healed rib fractures are noted on the right posteriorly. IMPRESSION: No acute process. MTDD
--- NOTE | 2018-05-14 15:03 | HP ---
ADMISSION DATE: 05/13/2018 HISTORY OF PRESENT ILLNESS: Martin Faria is an 82-year-old male from [place], who was admitted last evening to [facility]. He was making his typical walk in [place] town. Got a few 100 yards, chest pain appeared. He began walking again, chest pain reappeared. Known history of CAD, dates uncertain, in 2011. Suspected heart attack; stents, number uncertain; and has been doing reasonably well. Recent bout of bradycardia in the fall of 2016, resulted in pacemaker placed in [place] either in October 2017 or November 2017. Has done well since that time. He was seen in [facility] ER. EKG stable, troponin negative, admitted for observation. He has had no further chest pain since admission. MEDICATIONS: Present daily medications include: 1. Aricept 10 mg 1 p.o. at bedtime. 2. Crestor 40 mg 1 p.o. daily for hyperlipidemia. 3. Aspirin 81 mg 1 p.o. daily for CAD. 4. Atenolol 25 mg 1 p.o. daily for heart. 5. Glimepiride 4 mg 1 p.o. daily for NIDDM. 6. Isosorbide mononitrate 30 mg 1 p.o. daily for heart. 7. Losartan 50 mg 1 p.o. daily for hypertension/heart. ALLERGIES: No medication, environmental, or latex allergies. PAST MEDICAL HISTORY: Significant for NC, stent, pacemaker, kidney stones. No other operative procedures, hospitalizations, unusual childhood diseases, major injuries, or fractures. SOCIAL HISTORY: Rural [place] resident. 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 2 daughters, 2 sons. Smoked a long time ago. No alcohol, no illicit drug use. FAMILY HISTORY: Negative for early heart disease, diabetes mellitus, or inheritable cancers. REVIEW OF SYSTEMS: CONSTITUTIONAL: Feeling generally well. Wears glasses, some difficulty with hearing in crowds, intact dentition, and no loose teeth. CARDIOVASCULAR: Please see HPI. RESPIRATORY: Please see HPI. GI: Regular predictable stools, no blood in stools. : Good voiding pattern. Nocturia x1. No blood in urine. SKIN: No new lesions, eruptions, or moles. ENDOCRINE: No excessive thirst or urination. Diabetic by history. ORTHOPEDIC: Generalized joint complaints. PSYCHOLOGICAL: Mood stable. PHYSICAL EXAMINATION: VITAL SIGNS: Stable. 36.4, 67, 136/78, 93%, and 16. GENERAL: Elderly gentleman, appears comfortable. No chest pain. HEENT: Reveal funduscopic benign. Bright TMs. Decreased hearing. Clear nasal discharge. Mouth and oropharynx clear. Tongue midline. Good gag reflex. NECK: Benign. Thyroid small. CHEST: Clear in all lung fernandez. No adventitious sounds. HEART: Distant heart sounds without ectopy at 70. Pacemaker, left upper chest intact. ABDOMEN: Benign. No hepatosplenomegaly. AND RECTAL: Deferred. EXTREMITIES: Well perfused. Reflex symmetric. Sensation intact. LABORATORY STUDIES: CBC within normal limits. INR 1.04. Electrolytes satisfactory. Random glucose 124. Mildly elevated liver enzymes. Troponin x3, less than 0.17. ASSESSMENT: An 82-year-old gentleman presents with increasing chest pain, strong suspicion for unstable angina. PLAN: I spoke with Dr. Arshad in [facility] [place]. Agreed to accept in transfer. He will be allowed to transfer per son per vehicle, not drive himself. Addendum: 45 minute visit for examination, history and physical, discharge summary, and discharge plan to [facility] in [place]. /[id number] ELOY/DAWSON
[2018-05-14] MEDS ORDERED: ROSUVASTATIN CALCIUM 40 MG PO SCH (21:00)
[2018-05-14] MEDS ORDERED: DONEPEZIL HCL 10 MG PO SCH (21:00)
[2018-05-15] MEDS ORDERED: ISOSORBIDE MONONITRATE 30 MG PO SCH (09:00)
[2018-05-15] MEDS ORDERED: Non-Formulary Medication 1 Each (Losartan [Cozaar] 50 MG) PO SCH (09:00)
[2018-05-15] MEDS ORDERED: Non-Formulary Medication 1 Each (Glimepiride [Glimepiride] 4 MG) PO SCH (09:00)
[2018-05-15] MEDS ORDERED: Non-Formulary Medication 1 Each (Aspirin [Aspirin] 81 MG) PO SCH (09:00)
[2018-05-15] MEDS ORDERED: ATENOLOL 25 MG PO SCH (09:00)
== END 2018-05-14 10:18 | disposition home or self-care (01) ==
LOC: FB.ED 17:01 → FB.MS 21:12
PROVIDERS: ADMIT Emergency Medicine; ATTEND Family Medicine
DX: R07.2 Precordial pain (principal); I25.10 Atherosclerotic heart disease of native coronary artery without angina pectoris; E11.9 Type 2 diabetes mellitus without complications; E78.5 Hyperlipidemia, unspecified; I25.2 Old myocardial infarction; I10 Essential (primary) hypertension; F03.90 Unspecified dementia, unspecified severity, without behavioral disturbance, psychotic disturbance, mood disturbance, and anxiety; Z87.891 Personal history of nicotine dependence; Z95.0 Presence of cardiac pacemaker; Z95.5 Presence of coronary angioplasty implant and graft; Z79.82 Long term (current) use of aspirin; Z79.84 Long term (current) use of oral hypoglycemic drugs; Z79.899 Other long term (current) drug therapy
CPT/HCPCS: 36415; 71045; 71275; 80048; 80076; 82150; 84484; 85025; 85379; 85610; 93005; 99285; A9270; J7050; Q9967

== ENCOUNTER 2018-06-04 11:18 | Emergency (ER) | payer MEDICARE, BC ==
[2018-06-04] MEDS ORDERED: Sodium Chloride 0.9% 10 ML Syringe FLUSH PRN (11:23)
[2018-06-04] MEDS ORDERED: Aspirin 81 MG Tab.Chew PO ONE (11:30)
[2018-06-04] MEDS ORDERED: Nitroglycerin 0.4 MG Tab.SL SL PRN (11:35)
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
[2018-06-04 11:55] VITALS: BP 155/77
--- NOTE | 2018-06-04 14:41 | CR ---
INDICATION: Chest pain. CHEST: An AP portable upright view of the chest was obtained 06/04/2018 and compared with 05/13/2018 and 06/26/2017. The heart remains normal in size and shape. Bipolar pacemaker leads are unchanged in position. Overlying EKG leads are noted. An active infiltrate or effusion was not identified. IMPRESSION: No acute process. MTDD
== END 2018-06-04 13:18 ==
LOC: FB.ED 11:18
DX: I20.0 Unstable angina (principal); I10 Essential (primary) hypertension; E11.9 Type 2 diabetes mellitus without complications; Z87.442 Personal history of urinary calculi; Z79.899 Other long term (current) drug therapy
CPT/HCPCS: 36415; 71045; 80053; 84484; 85025; 85610; 93005; 99285; A9270; J7050

== ENCOUNTER 2018-07-21 21:45 | Emergency (ER) | payer MEDICARE, BC ==
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
[2018-07-21 23:29] VITALS: BP 129/64
== END 2018-07-21 23:40 | disposition home or self-care (01) ==
LOC: FB.ED 21:45
DX: S51.811A Laceration without foreign body of right forearm, initial encounter (principal); I10 Essential (primary) hypertension; E11.9 Type 2 diabetes mellitus without complications; Z79.82 Long term (current) use of aspirin; Z79.899 Other long term (current) drug therapy; X58.XXXA Exposure to other specified factors, initial encounter
CPT/HCPCS: 36415; 80048; 85025; 85610; 99283; G0480

== ENCOUNTER 2019-03-09 21:49 | Emergency (ER) | payer MEDICARE, BC ==
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
[2019-03-10 02:35] VITALS: BP 147/74
== END 2019-03-10 01:19 | disposition home or self-care (01) ==
LOC: FB.ED 21:49
DX: R31.0 Gross hematuria (principal); N32.9 Bladder disorder, unspecified; I10 Essential (primary) hypertension; E11.9 Type 2 diabetes mellitus without complications; E78.00 Pure hypercholesterolemia, unspecified; Z79.82 Long term (current) use of aspirin; Z79.899 Other long term (current) drug therapy
CPT/HCPCS: 36415; 51798; 74176; 80053; 81001; 85025; 85610; 85730; 87086; 99284-25

== ENCOUNTER 2020-11-10 05:27 | Emergency (ER) | payer MEDICARE, BC ==
[2020-11-10] MEDS ORDERED: Glucagon,Human Recombinant 1 MG Vial IM ONE (06:29)
[2020-11-10] MEDS ORDERED: 50% Dextrose in Water 50 ML Syringe IVPUSH ONE (06:29)
[2020-11-10] MEDS ORDERED: Sodium Chloride 0.9% 1,000 ML IV SCH (06:30)
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
[2020-11-10 08:07] VITALS: BP 149/63; PULSE 60
--- NOTE | 2020-11-12 15:32 | CR ---
INDICATION: Shortness of breath. CHEST ONE VIEW: Two AP upright portable views of the chest 11/09/20 was compared with 06/04/18 and 05/13/18. The chest is rotated to the left. The heart appears somewhat enlarged, but is emphasized by the rotation. Bipolar pacemaker leads again noted appearing grossly unchanged in position. Heavy markings are noted at the lung bases at least partly due to poor inspiration making it difficult to exclude areas of patchy bronchopneumonia. Colonic interposition is noted on the right. IMPRESSION: 1. Cannot exclude areas of patchy bronchopneumonia at the lung bases. 2. 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 3. 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 MTDD
== END 2020-11-10 08:45 | disposition home or self-care (01) ==
LOC: FB.ED 05:27
DX: E11.649 Type 2 diabetes mellitus with hypoglycemia without coma (principal); U07.1 COVID-19; I10 Essential (primary) hypertension; E78.5 Hyperlipidemia, unspecified; I25.10 Atherosclerotic heart disease of native coronary artery without angina pectoris; Z79.82 Long term (current) use of aspirin; Z79.84 Long term (current) use of oral hypoglycemic drugs; Z79.899 Other long term (current) drug therapy; Z79.02 Long term (current) use of antithrombotics/antiplatelets; Z95.5 Presence of coronary angioplasty implant and graft
CPT/HCPCS: 36415; 71045; 80048; 81001; 82962; 83880; 84484; 85025; 96372; 96374; 99285; J1610; J7030; U0002